=== PATIENT | female | born 2005 | race Caucasian/White ===

== ENCOUNTER 2024-11-08 16:01 | Emergency (ER) | payer MEDICAID, SELFPAY ==
[2024-11-08 16:02] VITALS: BMI 26.1
[2024-11-08 16:42] VITALS: BP 119/78; PULSE 79; RESP 18; TEMP 37.2; O2SAT 100
--- NOTE | 2024-11-08 16:47 | XR_ITS ---
Examination: PA lateral chest 2 views TECHNIQUE: Upright PA lateral chest 2 views Date and time: November 08, 2024 at 1330 hours Compared to chest films dating to August 06, 2012 INDICATIONS: Chest pain today FINDINGS: Normal heart size No pneumonia or pulmonary edema Pulmonary nodule right upper lobe measures 16 mm compared to 17 mm on September 03, 2022 exam Suspicious for interval 12 mm pulmonary nodule in the right infrahilar region IMPRESSION: Recommend CT chest without contrast follow up to exclude interval 20 mm right infrahilar pulmonary nodule
--- NOTE | 2024-11-08 16:47 | EKG_ITS ---
[facility] Test Date: 2024-11-08 Pat Name: VISH PITTS Department: Room: - Gender: Female Communications Writer: : 2005 Requested By: Massimo Donnelly Order Number: [id number] Reading MD: Massimo Donnelly Measurements Intervals [place]rott Rate: 72 P: 49 MT: 149 QRS: 52 QRSD: 78 T: 33 QT: 347 QTc: 382 Interpretive Statements SINUS RHYTHM LOW QRS VOLTAGE IN PRECORDIAL LEADS [QRS DEFLECTION < 1.0 mV IN CHEST LEADS] MINIMAL ST DEPRESSION [0.025+ mV ST DEPRESSION] No previous ECG available for comparison /store/[email or web address]/[id number].pdf
--- NOTE | 2024-11-08 16:47 | XR_ITS ---
Examination: Abdomen sonogram, Limited Date and time of exam: November 08, 2024 1700 hours INDICATIONS: Right upper abdominal pain epigastric pain 3 months, worse the last week Technique: Real-time hudson scale transabdominal sonographic images of the upper abdomen obtained. Findings: Multiple gallstones Normal gallbladder wall Normal common bile duct 0.4 cm Pancreatic head 1.5 cm Liver 12.9 cm fatty infiltration smooth contour Normal hepatopedal portal venous flow. Patent IVC IMPRESSION: Cholelithiasis, negative for cholecystitis
--- NOTE | 2024-11-08 16:47 | PD.EDRME ---
Rapid Medical Screening Exam RME Arrival date/time: 11/08/24 16:01 19-year-old female with no known medical history presents to the emergency room with a chief complaint of 8 out of 10 sternal chest pain and right upper quadrant abdominal pain and tenderness x 2 days I have greeted and performed a focused initial assessment of this patient. A comprehensive ED assessment and evaluation of the patient, analysis of all test results, and completion of the medical decision making process will be conducted by additional ED providers. Chief Complaint: Chest Pain Time Seen by Provider: 11/08/24 16:38 Vital signs: Vital Signs Temperature 98.9 F 11/08/24 16:42 Pulse Rate 79 11/08/24 16:42 Respiratory Rate 18 11/08/24 16:42 Blood Pressure 119/78 11/08/24 16:42 Pulse Oximetry (%) 100 11/08/24 16:42 Oxygen Delivery Method Room Air 11/08/24 16:42 Vital signs reviewed by provider: Yes
[2024-11-08 17:10] LABS: Basophils # (Auto) 0.1 Thou/mm3 (0.0-0.2); Basophils % (Auto) 1 % (0-2.5); Eosinophils # (Auto) 0.1 Thou/mm3 (0.0-0.5); Eosinophils % (Auto) 2 % (0-10); Hematocrit 40.4 % (36.0-46.0); Hemoglobin 14.3 g/dL (12.0-16.0); Immature Granulocytes % (Auto) 0 % (0-0); Immature Granulocytes Auto 0.03 Thou/mm3 (0.00-0.00); Lymphocytes # (Auto) 2.6 Thou/mm3 (1.0-4.8); Lymphocytes % (Auto) 31 % (10-50); Mean Corpuscular HGB Conc 35.4 g/dl (31.0-37.0); Mean Corpuscular Hemoglobin 31.5 pg (25.0-35.0); Mean Corpuscular Volume 89 fL (80-100); Monocytes # (Auto) 0.6 Thou/mm3 (0.0-0.8); Monocytes % (Auto) 7 % (0-12); Neutrophils # (Auto) 5.1 Thou/mm3 (1.8-7.7); Neutrophils % (Auto) 60 % (37-80); Nucleated Red Blood Cell % 0 /100 WBC (0); Platelet Count 304 Thou/mm3 (140-440); RDW Standard Deviation 37.9 fL (36.4-46.3); Red Blood Count 4.54 Miln/mm3 (4.00-5.20); White Blood Count 8.5 Thou/mm3 (4.5-11.0)
[2024-11-08 17:25] LABS: B-Type Natriuretic Peptide < 20 pg/mL (0-100)
[2024-11-08 17:28] LABS: Collection Type, Urine Clean Catch
[2024-11-08 17:38] LABS: Bacteria,Urine Rare; Bilirubin,Urine Negative (Negative); Blood,Urine Negative (Negative); Clarity,Urine Clear (Clear/Hazy); Color,Urine Lt-Yellow (Lt Yel-Yel); Glucose, Urine Negative (Negative); Ketones,Urine Negative (Negative); Leukocyte Esterase,Urine Negative (Negative); Nitrite,Urine Negative (Negative); Protein,Urine Trace (Neg - Trace); RBC,Urine 2 /hpf (0-3); Specific Gravity,Urine 1.024 (1.001-1.035); Squamous Epithelial Cell,Urine 2 /hpf (0-5); Urobilinogen,Urine Negative mg/dL (0.0-1.0); WBC,Urine 1 /hpf (0-5)
[2024-11-08 17:38] LABS: Alanine Aminotransferase 9 U/L (10-49); Albumin, Serum 4.7 gm/dL (3.5-5.0); Albumin/Globulin Ratio 1.7 (1.2-2.2); Alkaline Phosphatase 71 U/L (46-116); Anion Gap 11 (7-16); Aspartate Amino Transferase 19 U/L (0-34); BUN/Creatinine Ratio 12 Ratio (12-20); Bilirubin,Total 0.3 mg/dL (0.3-1.2); Blood Urea Nitrogen 7 mg/dL (9-23); Calcium 9.3 mg/dL (8.3-10.6); Calcium (Corrected) 9.3 mg/dL (8.5-10.1); Chloride 106 mMol/L (98-107); Creatinine (Component) 0.6 mg/dL (0.6-1.3); Estimated Creatinine Clearance 153.4 mL/min (>60); Globulin 2.7 gm/dL (2.3-3.5); Glucose 92 mg/dL (74-106); Lipase 34 U/L (12-53); Osmolality,Calculated 277 (275-295); Sodium 140 mMol/L (136-145); Total Protein 7.4 gm/dL (5.7-8.2); Troponin I < 0.002 ng/mL (0.0-0.045); eGFR > 60 See Note
[2024-11-08 17:56] LABS: Amphetamine/Methamp Scrn,U Negative (Negative); Barbiturate Screen,Urine Negative (Negative); Benzodiazepines Screen,Urine Negative (Negative); Benzoylecgonine Screen, Ur Negative (Negative); Fentanyl Screen,Urine Negative (Negative); Opiate Screen,Urine Negative (Negative); THC Screen,Urine Positive (Negative)
[2024-11-08 22:43] LABS: HCG Qualitative,Urine Negative
--- NOTE | 2024-11-08 22:46 | PD.EDABDPN ---
ED Abdominal Pain RME/HPI General Chief Complaint: Chest Pain Stated complaint: CHEST PAIN WITH ABD PAINX1 WEEK Time seen by provider: 11/08/24 16:38 Arrival date/time: 11/08/24 16:01 Source: patient, family, RN notes reviewed and old records reviewed Mode of arrival: ambulatory Limitations: no limitations RME / HPI RME / HPI narrative: 19yof presents to ED for intermittent epigastric pain radiating to chest and RUQ x3-4 months worsened over the past week. Patient reports nausea and intermittent vomiting since onset. No sob, diarhea, flank pain or urniary symptoms reported. Ibuprofen taken this afternoon with mild relief. Related Data Home Medications ?Medication ?Instructions ?Recorded ?Confirmed amoxicillin 500 mg capsule 500 mg PO BID 05/31/20 05/31/20 ibuprofen 800 mg tablet 800 mg PO Q8H PRN Pain 05/31/20 05/31/20 Previous Rx's ?Medication ?Instructions ?Recorded dicyclomine 20 mg tablet 20 mg PO Q6HR PRN abdominal pain 11/08/24 #30 tabs famotidine 40 mg tablet (Pepcid) 40 mg PO QDAY #30 tabs 11/08/24 ibuprofen 600 mg tablet 600 mg PO Q6H PRN pain #20 tabs 11/08/24 ondansetron 4 mg disintegrating 4 mg PO Q6H PRN nausea and 11/08/24 tablet vomiting #10 tabs Allergies Allergy/AdvReac Type Severity Reaction Status Date / Time No Known Allergies Allergy Verified 11/08/24 16:05 Review of Systems Review of Systems Systems Reviewed: All systems reviewed, normal except as documented Constitutional Constitutional: Denies fever(s) Cardiovascular Cardiovascular: Reports chest pain and Denies dyspnea Respiratory Respiratory: Denies dyspnea Gastrointestinal Gastrointestinal: Reports abdominal pain, Denies loose stools, Reports nausea and Reports vomiting Genitourinary Genitourinary: Denies dysuria and Denies flank pain Past Medical History Surgical History OTHER SURGICAL HX: denies pshx Social History SMOKING STATUS: Never smoker SUBSTANCE USE: marijuana ALCOHOL: Never Past Medical History Comments PMH COMMENT: denies pmhx ED Exam General Limitations: Present no limitations General appearance: Present alert and in no apparent distress Head Head exam: Present atraumatic and normocephalic Eye Eye exam: Present normal appearance, PERRL and EOMI ENT ENT exam: Present normal exam and mucous membranes moist Neck Neck exam: Present normal inspection and full ROM Chest Chest inspection: Present normal inspection and symmetric chest wall rise Respiratory Respiratory exam: Present normal lung sounds bilaterally; Absent respiratory distress Cardiovascular Cardiovascular exam: Present regular rate and normal rhythm Abdominal Exam Abdominal exam: Present soft and tenderness (mild RUQ/epigastric); Absent distention, guarding or rebound Extremities Exam Extremities exam: Present normal inspection and full ROM Back Exam Back exam: Absent CVA tenderness (R) or CVA tenderness (L) Neurological Exam Neurological exam: Present alert and oriented X3 Psychiatric Psychiatric exam: Present normal affect and normal mood Skin Skin exam: Present warm, dry, intact and normal color Course Quality Measures none Orders Category Date Time Status EKG (ED ONLY) *Do not use* NOW Care 11/08/24 16:47 Completed EKG (ED Only) Stat Exams 11/08/24 16:47 Draft US gall bladder Stat Exams 11/08/24 16:47 Completed XR chest 2V Stat Exams 11/08/24 16:47 Completed B-Type Natriuretic Peptide Stat Lab 11/08/24 16:58 Completed CBC Stat Lab 11/08/24 16:58 Completed Comprehensive Metabolic Panel Stat Lab 11/08/24 16:58 Completed Drug Screen,Urine Stat Lab 11/08/24 17:21 Completed HCG Qualitative,Urine Stat Lab 11/08/24 17:21 Completed Lipase Stat Lab 11/08/24 16:58 Completed Troponin I Stat Lab 11/08/24 16:58 Completed Urinalysis Stat Lab 11/08/24 17:21 Completed Vital Signs Vital signs: Vital Signs Temperature 98.9 F 11/08/24 16:42 Pulse Rate 79 11/08/24 16:42 Respiratory Rate 18 11/08/24 16:42 Blood Pressure 119/78 11/08/24 16:42 Pulse Oximetry (%) 100 11/08/24 16:42 Oxygen Delivery Method Room Air 11/08/24 16:42 Procedures -ED EKG Interpretation #1: Date of EK11/08/24 Rate: 72 Interpretation: Interpreted by me EKG Impression: Normal sinus rhythm, No acute ST-T changes, No ectopy, No ischemic changes, Normal QRS, Normal intervals and Normal axis Abdominal Pain MDM MDM Narrative MDM Narrative:: 19yof presents to ED for intermittent epigastric pain radiating to chest and RUQ x3-4 months worsened over the past week. Patient reports nausea and intermittent vomiting since onset. No sob, diarhea, flank pain or urniary symptoms reported. Ibuprofen taken this afternoon with mild relief. Patient and mother updated on labs/imaging. Encouraged close follow up with general surgery if symptoms persist or worsen. Stable for dc, RTED precautions given. Patient data External records reviewed:: [facility] previous records (05/31/20 ED visit for abdominal pain) Clinical information provided by:: patient and parent Social determinants that could affect healthcare access:: none Patient has the following chronic illnesses:: none How is presenting disease/condition affected by chronic disease/condition?: no chronic disease Evaluation data The following diagnostics were reviewed and interpreted by me:: lab results, radiology exam(s) and EKG tracing(s) Lab and/or radiology exams considered but not ordered:: CTA chest: do not suspect PE Interpretation Summary: No leukocytosis No anemia UA negative LFTs and lipase wnl Negative preg Negative trop US: +gallstones per my read Medications / Prescriptions Medications or Prescriptions considered but not ordered:: no antibiotics recommended at this time Medication administrations:: none Consultations Consultation(s) initiated? (list below): No Diagnosis Differential diagnosis abdominal pain: other (cholelithiasis, cholecystitis, PUD, gastritis, GERD, pancreatitis, gastroenteritis) Most likely diagnosis given after review of the tests above:: Cholelithiasis Admission Indicated Admission indicated?: not indicated Admission Request Was there a request for admission?: No Disposition Plan Disposition Plan: Discharge Discharge Attestation Discharge Attestation: The patient and all family members were given an opportunity to ask questions and understood the discharge instructions. Discharge instructions specifically effects, indications for sooner follow up or return to the emergency department, and the expected course of current diagnosis. Patient condition: Stable Discharge Plan Plan Patient Disposition: HOME (Self Care) Patient condition on transfer: Stable Prescriptions/Referrals Prescriptions/Med Rec: New ondansetron 4 mg tablet,disintegrating 4 mg PO Q6H PRN (Reason: nausea and vomiting) Qty: 10 0RF ibuprofen 600 mg tablet 600 mg PO Q6H PRN (Reason: pain) Qty: 20 0RF dicyclomine 20 mg tablet 20 mg PO Q6HR PRN (Reason: abdominal pain) Qty: 30 0RF famotidine [Pepcid] 40 mg tablet 40 mg PO QDAY Qty: 30 0RF No Action amoxicillin 500 mg capsule 500 mg PO BID Patient Comments: TAKE 1 CAPSULE BY MOUTH 3 TIMES A DAY FOR 7 DAYS ibuprofen 800 mg tablet 800 mg PO Q8H PRN (Reason: Pain) Patient Comments: TAKE 1 TABLET BY MOUTH EVERY 8 HOURS NEEDED FOR PAIN Referrals: Lyla Hood MD [Physician] - (Call to schedule an appointment for a visit) No Primary/Family,Physician [Primary Care Provider] - In 1 week Problem List Clinical Impression: Cholelithiasis, Pulmonary nodule seen on imaging study Patient/Caregiver Discharge Instructions Education Materials: Treating Gallstones Print Language: Icelandic Stand Alone Forms: Paige Award Info., Patient Portal Info Letter PA/[employer] Supervising Physician PA/[employer] Supervising Physician: Antonio
[2024-11-08 23:14] VITALS: BP 117/76; PULSE 64; RESP 18; TEMP 37.2; O2SAT 98
== END 2024-11-08 23:19 | disposition home or self-care (01) ==
PROVIDERS: Nurse Practitioner Family; Physician Assistant; Emergency Provider Emergency Medicine
DX: K80.20 Calculus of gallbladder without cholecystitis without obstruction (principal); R91.1 Solitary pulmonary nodule; R94.31 Abnormal electrocardiogram [ECG] [EKG]
CPT/HCPCS: 36415; 71046; 76705; 80053; 80307; 81001; 81025; 83690; 83880; 84484; 85025; 93005; 99284